=== PATIENT | male | born 1995 | race Caucasian/White ===

== ENCOUNTER 2016-12-02 22:12 | Emergency (ER) | payer OTHER ==
[~2016-12-02 22:12] MED LIST: ERYTHROMYCIN 2250 MG PO
[2016-12-02 22:18] VITALS: BP 118/69
--- NOTE | 2016-12-02 23:11 | RADIOLOGY REPORT ---
EXAMINATION: XR HAND, RIGHT CLINICAL INFORMATION: Swelling right thumb COMPARISON: None TECHNIQUE: AP, lateral, and oblique views of the right hand. FINDINGS: Soft tissue swelling at the base of the thumb at the thenar eminence but no air or radiopaque foreign body. Bone and joints are normal. IMPRESSION: Soft tissue swelling at the thenar eminence. No fracture or dislocation.
--- NOTE | 2016-12-02 23:14 | RADIOLOGY REPORT ---
EXAMINATION: WRIST 4 VIEWS, RIGHT CLINICAL INFORMATION: Right wrist pain and swelling. COMPARISON: None. TECHNIQUE: AP, lateral, oblique, scaphoid views of the right wrist are provided. FINDINGS: There are no fractures or dislocations. There is no displacement of the pronator fat pad. The proximal carpal row is intact. IMPRESSION: Unremarkable right wrist radiographs.
--- NOTE | 2016-12-02 23:36 | ED HAND/WRIST INJURY COMPLAINT ---
History of Present Illness General Chief Complaint: Hand or Wrist Injury Stated Complaint: "RT HAND SWELLING/PRESSURE" Source: patient, old records Exam Limitations: no limitations Vital Signs & Intake/Output Vital Signs & Intake/Output Vital Signs Date Time Temp Pulse Resp B/P Pulse O2 O2 Flow FiO2 Ox Delivery Rate 12/02 2339 Room Air 12/02 2218 77 20 118/69 97 ED Intake and Output 12/03 0000 12/02 1200 Intake Total Output Total Balance Patient 175 lb Weight Allergies Coded Allergies: MDX - Amoxicillin (AMOXICILLIN) (HIVES 01/06/15) MDX - SULFA (sulfonamide) (SULFA (SULFONAMIDE)) (HIVES 01/06/15) Reconcile Medications No Known Home Medications Triage Note: PER PT HIT A PALLET HARD AND INSTANTLY RT HAND FATPAD OF THUMB SWELLED UP NOW WITH PRESSURE TO AREA. Triage Nurses Notes Reviewed? yes Occurred: just prior to arrival Duration: hour(s): (1), better, constant Timing: single episode today Injury Environment: work Severity: mild, moderate Severity Numbers: 3 Pain/Injury Location: Right: Hand. Context: blow Method of Injury: direct blow No Modifying Factors: none Associated Symptoms: swelling HPI: 21-year-old male presents emergency room for evaluation complaining of right lateral hand pain palmar surface aching mild to moderate. He states the pain was initially 7 out of 10 however is currently 3 out of 10. He is right-hand dominant. The symptoms came on after he struck his hand on a pallet. He denies any other hand wrist or finger pain numbness or tingling, no forearm or elbow pain. He is not taken anything for his symptoms and is declining anything when offered. There are no other associated symptoms or modifying factors (JOHN LIM) Past History Travel History Traveled to [place] past 21 day No Medical History Any Pertinent Medical History? none Neurological: NONE EENT: NONE Cardiovascular: NONE Respiratory: NONE Gastrointestinal: NONE Hepatic: NONE Renal: NONE Musculoskeletal: NONE Psychiatric: NONE Endocrine: NONE Blood Disorders: NONE Cancer(s): NONE RELIEF MATE/Reproductive: NONE Surgical History Surgical History: non-contributory Psychosocial History What is your primary language [place] Tobacco Use: Never used Family History Hx Contributory? No (JOHN LIM) Review of Systems Review of Systems Constitutional: Reports: see HPI. All Other Systems: Reviewed and Negative Comments Review of systems: See HPI, All other systems negative. Constitutional, no chills no fever, no malaise HEENT: No visual changes no sore throat no congestion, Cardiovascular: No chest pain , no palpitation Skin, no rashes, no change in skin Respiratory: No dyspnea no cough no sputum GI: No nausea no vomiting, no diarrhea : No dysuria Muscle skeletal: joint pain,, no back pain, no neck pain, Neurologic: No numbness n no headache Psych: No stress Heme/endocrine: No bruising no bleeding Immunology: No lymphadenopathy (JOHN LIM) Physical Exam Physical Exam General Appearance: well developed/nourished, alert, awake, comfortable Hand Left: normal inspection Hand Right: swelling Comments: Well-developed well-nourished patient in no apparent distress. HEENT: Atraumatic, extraocular motion intact Neck: Supple, FROM Back: FROM, Cardiovascular: Regular rate and rhythms no murmurs Respiratory: CNo respiratory distress. Patient speaking in full complete sentences. Breath sounds clear to auscultation bilaterally: NO W/R/R Shoulder: Atraumatic/Stable. FROM . Elbow: Atraumatic/stable. FROM. No laxity Upper arm/Forearm: Atraumatic. Nontender. 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 Skin intact. FROM of all fingers both passive and active Refill to the right first finger is within normal limits Pulses: Normal/equal radial pulses bilaterally. Brisk cap refill Lower Extremities: full range of motion Neuro: Alert and oriented x3 Skin: Warm & dry;No appreciable rash on exposed skin Psych: Mood affect normal, normal memory normal judgment. (JOHN LIM) Progress Differential Diagnosis: contusion, compartment syndrome, dislocation, felon, fracture, sprain Plan of Care: I discussed with patient his x-ray results he is again declining any further pain offered Patrick wrap was applied by me advise supportive care rest ice Tylenol Motrin as needed, return anytime sooner with any concerns he feels comfortable plan cleared for discharge Diagnostic Imaging: Viewed by Me: Radiology Read. Discussed w/RAD: Radiology Read. Radiology Impression: PATIENT: SHAQUILLE SANDOVAL JR PRESENT AGE: 21 PATIENT ACCOUNT NO: [id number] : 94 LOCATION: [facility] ORDERING PHYSICIAN: JOHN SHEPHERD SERVICE DATE: 12/02/16 EXAM TYPE: RAD - XRY-WRIST COMPLETE-RIGHT EXAMINATION: WRIST 4 VIEWS, RIGHT CLINICAL INFORMATION: Right wrist pain and swelling. COMPARISON: None. TECHNIQUE: AP, lateral, oblique, scaphoid views of the right wrist are provided. FINDINGS: There are no fractures or dislocations. There is no displacement of the pronator fat pad. The proximal carpal row is intact. IMPRESSION: Unremarkable right wrist radiographs. DICTATED BY: GARRET VARELA MD DATE/TIME DICTATED:12/02/162309 ANESTHESIA TECH:EDILBERTO DATE/TIME TRANSCRIBED:12/02/162309 CONFIDENTIAL, DO NOT COPY WITHOUT APPROPRIATE AUTHORIZATION. <Electronically signed in Other Vendor System> SIGNED BY: GARRET VARELA MD 12/02/162313, PATIENT: SHAQUILLE SANDOVAL JR PRESENT AGE: 21 PATIENT ACCOUNT NO: [id number] : 94 LOCATION: [facility] ORDERING PHYSICIAN: JOHN SHEPHERD SERVICE DATE: 12/02/16 EXAM TYPE: RAD - XRY-HAND, RIGHT EXAMINATION: XR HAND, RIGHT CLINICAL INFORMATION: Swelling right thumb COMPARISON: None TECHNIQUE: AP, lateral, and oblique views of the right hand. FINDINGS: Soft tissue swelling at the base of the thumb at the thenar eminence but no air or radiopaque foreign body. Bone and joints are normal. IMPRESSION: Soft tissue swelling at the thenar eminence. No fracture or dislocation. DICTATED BY: RIP MARVIN MD DATE/TIME DICTATED:12/02/162305 ANESTHESIA TECH:EDILBERTO DATE/ TIME TRANSCRIBED:12/02/162305 CONFIDENTIAL, DO NOT COPY WITHOUT APPROPRIATE AUTHORIZATION. <Electronically signed in Other Vendor System> SIGNED BY: RIP MARVIN MD 12/02/162310 (JOHN LIM) Departure Departure Time of Disposition: 2344 Disposition: HOME OR SELF CARE Condition: Stable Clinical Impression Primary Impression: Hand sprain Referrals: DEMETRICE AGUILAR,IVET Lima (PCP/Family) Additional Instructions: Rest ice Tylenol Motrin as needed for pain Patrick wrap as discussed return with any concerns Departure Forms: Customer Survey General Discharge Information Prescriptions: Current Visit Scripts No Known Home Medications (ENRRIQUE SHEPHERD,JOHN) PA/RN OCCUPATIONAL Co-Sign Statement Statement: ED Attending supervision documentation- [] I saw and evaluated the patient. I have also reviewed all the pertinent lab results and diagnostic results. I agree with the findings and the plan of care as documented in the PA's/RN OCCUPATIONAL's documentation. [x] I have reviewed the ED Record and agree with the PA's/RN OCCUPATIONAL's documentation. [] Additions or exceptions (if any) to the PAs/RN OCCUPATIONAL's note and plan are summarized below: [] (CLAUDINE AGUILAR,IRIS Lima)
== END 2016-12-02 23:51 ==
LOC: ERH 22:12
DX: S63.91XA Sprain of unspecified part of right wrist and hand, initial encounter (principal); X58.XXXA Exposure to other specified factors, initial encounter
CPT/HCPCS: 73110-RT; 73130-RT